=== PATIENT | female | born 1965 | race African-American/Black ===

== ENCOUNTER 2019-03-04 14:08 | Emergency (ER) | payer OTHER, SELFPAY | END 2019-03-04 14:26 | disposition home or self-care (01) | LOC: BURERS 14:08 | DX: M54.12 Radiculopathy, cervical region (principal); F31.9 Bipolar disorder, unspecified; F41.9 Anxiety disorder, unspecified; F17.210 Nicotine dependence, cigarettes, uncomplicated | CPT/HCPCS: 99283 ==

== ENCOUNTER 2023-09-09 08:15 | Emergency (ER) | payer OTHER ==
[2023-09-09] MEDS ORDERED: diphenhydrAMINE 25 MG CAP ONE (08:39)
[2023-09-09] MEDS ORDERED: predniSONE 20 MG TAB ONE (08:39)
== END 2023-09-09 08:44 | disposition home or self-care (01) ==
LOC: BURERS 08:15
DX: L25.9 Unspecified contact dermatitis, unspecified cause (principal); I10 Essential (primary) hypertension; M19.90 Unspecified osteoarthritis, unspecified site; F17.210 Nicotine dependence, cigarettes, uncomplicated; Z55.6 Problems related to health literacy
CPT/HCPCS: 99282; J7512